=== PATIENT | male | born 1970 | race Caucasian/White ===

== ENCOUNTER 2016-04-15 19:03 | Inpatient (IN) | payer OTHER ==
[~2016-04-15] VITALS: Ht 185.4 cm; Wt 128.9 kg
[2016-04-15 19:15] VITALS: BP 151/91; PULSE 101; RESP 24; O2SAT 94
[2016-04-15] MEDS ORDERED: Heparin 5,000 Unit/mL Inj IVPUSH ONE (19:35)
[2016-04-15] MEDS ORDERED: Heparin 25K Unit/500mL 0.45 NS 25,000 UNIT in IV Premix 1 EACH IV ONE (19:35)
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
[2016-04-15 19:50] LABS: BASOPHILS % (AUTO) 0.6 % (0-3); EOSINOPHILS % (AUTO) 6.6 % (0-5); MONOCYTES % (AUTO) 8.3 % (4-12); Mean Corpuscular Hemoglobin 28.4 pg (27.0-35.0); Mean Corpuscular Volume 81.9 fL (81-100); NEUTROPHILS % (AUTO) 53.6 % (40-74); Platelet Count 206 bil/L (150-400)
[2016-04-15 20:11] LABS: TROPONIN T < 0.010 ug/L (0.0-0.011)
[2016-04-15 21:04] VITALS: BP 154/81; PULSE 96; RESP 18; O2SAT 97
--- NOTE | 2016-04-15 21:04 | DRSVH ---
PROCEDURE: CT ANGIO CHEST PULMONARY EMBOLISM ([id number]) INDICATIONS: SOB TECHNIQUE: After the administration of intravenous contrast, 2 mm thick sections acquired from the pulmonary api marimar to the posterior costophrenic angles. 2 axial scans were completed secondary to suboptimal contr ast bolus timing on the first scan. 3-dimensional maximum intensity projection (MIP) coronal and sagi ttal reformats were then acquired through the thorax. For radiation dose reduction, the following wa s used: automated exposure control, adjustment of mA and/or kV according to patient size. COMPARISON: None. FINDINGS: Image quality: Excellent. Pulmonary arteries: Tubular filling defects are seen within the distal right main pulmonary artery, e xtending into the right upper, right middle, and right lower lobe lobar, segmental, and subsegmental arterial branches. Left sided pulmonary vascular suboptimally visualized, and small pulmonary emboli may be present. Lungs and pleura: Lungs are clear. No pleural effusions or pneumothorax. Central and peripheral ai rways are patent. Mediastinum: Heart size is normal, without pericardial effusion. No mediastinal or hilar adenopathy . Thoracic aorta is normal in caliber and enhancement. Esophagus is normal in caliber, without hiat al hernia. Bones and chest wall: No suspicious bony lesions. Ribs and thoracic spine appear intact throughout. Thyroid gland is grossly unremarkable. No axillary or supraclavicular adenopathy. Abdomen: Visualized upper abdominal solid organs appear normal in the early arterial phase of enhanc ement. IMPRESSION: 1. Right-sided pulmonary emboli as described above. Findings discussed with Dr. Day on 127.17 at 2101 hrs. Dictated by: Allegra Philip M.D. on 04/15/2016 at 20:59 Approved by: Allegra Philip M.D. on 04/15/2016 at 21:02
[2016-04-15] MEDS ORDERED: Alum-Mag Hydrox-Simeth 30 mL Suspension PO PRN (21:15)
[2016-04-15] MEDS ORDERED: Polyethylene Glycol (PEG) 17 Gm Powder PO PRN (21:15)
[2016-04-15] MEDS ORDERED: Ondansetron 2 mg/mL 2 mL Inj IVPUSH PRN (21:15)
[2016-04-15] MEDS ORDERED: Heparin 5,000 Unit/mL Inj IVPUSH PRN (21:20)
[2016-04-15] MEDS ORDERED: Heparin 25K Unit/500mL 0.45 NS 25,000 UNIT in IV Premix 1 EACH IV SCH (21:20)
[2016-04-15 22:00] VITALS: BP 146/95; PULSE 106; RESP 18; O2SAT 95
--- NOTE | 2016-04-15 22:00 | NUR ---
Admission to [facility] Room 2021 Pt arrived at 2200 from the ED with VSS and on RA. Pt did c/o feeling SOB when up with activity but pt is still able to ambulate independently with a stead gait. Pt is AOx3 and is accompanied by his SO. Pt's left lower leg is edematous and pt does have some pain in the leg but did not feel a need to rate the pain at the time so there is no pain score logged at this time. Pt has low-dose algorithm insulin ordered since pt is pre-diabetic. Pt arrived with heparin running at 18unit/kg/hr.
[2016-04-15 22:14] VITALS: PULSE 106
--- NOTE | 2016-04-15 22:57 | PCM.HPMED ---
Subjective Date of Service Apr 15, 2016 Primary Provider: Admitting Physician: Madyson Correa DO Primary Care Physician: Warren Patel MD Attending Physician: Madyson Correa DO Admit Status: From the Emergency Department Chief Complaint: leg pain, DVT as per outpatient urgent care US History of Present Illness: 45yoM with past history of obesity, pre-HTN, pre-diabetes admitted after outpatient positive lower extremity ultrasound for DVT and subsequent CTA findings of pulmonary embolism. Patient states that 4-5 days ago patient started having an achy pain in his left leg that felt like "a pulled muscle". 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 After the time off he noticed that the pain in his leg did not improve and while at work decided to look up "pain in leg" on . He found that he could have DVT / PE and immediately sought out further attention at urgent care. An ultrasound of the left extremity was completed and found positive for DVT at which time patient was referred to [facility] ED where a CTA was found to be positive for pulmonary embolism. Patient has no history of DVT or PE and no family history of clotting or bleeding disorders. No history of recent travel. Possible trauma to left leg. Patient denies chest pain, chest tightness, light headedness or dizziness but endorses dyspnea on exertion and persistent left leg pain. Review of Systems: Complete review of system obtained. 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 at bedside Eyes: PERRLA, Scleral Anicteric Mouth: Mouth Normal, Mucous Membranes Moist/[place]. Neck: Supple, no Thyromegaly, trachea central. Chest & Lungs: Clear to auscultation & percussion, No adventitious breath sounds, no crackles, no wheeze Cardiovascular: Normal S1, Normal S2, No Murmurs/Rubs/Gallops, Tach/ reg Rhythm , (No JVD, 2+ pitting edema left, no edema right) Pulses: Radial (present and equal), Dorsalis Pedi (present and equal) Abdomen: Soft, Non-tender, Non-distended, Normoactive bowel tones. Musculoskeletal: Unremarkable. Normal range of motion, no swollen or erythematous joints Extremities: edema as per CV exam, no cyanosis, no clubbing. Skin: No rashes. Warm and dry, no erythematous areas Neurological: Grossly neurologically intact, has generalized weakness, Normal Speech, Sensation Intact Lymphatic: Lymph nodes Cervical and Axillary not palpable. Lab and Diagnostics Result Diagram: 04/15/16193904/15/161939 X-Rays, CTs and MRIs Patient Name: CHRISTOPHER ABDI MR#: [id number] [place] [facility] [place] Phys: Liborio Dya MD Date of Service: 04/15/161934 PROCEDURE: CT ANGIO CHEST PULMONARY EMBOLISM ([id number]) INDICATIONS: SOB TECHNIQUE: After the administration of intravenous contrast, 2 mm thick sections acquired from the pulmonary apices to the posterior costophrenic angles. 2 axial scans were completed secondary to suboptimal contrast bolus timing on the first scan. 3-dimensional maximum intensity projection (MIP) coronal and sagittal reformats were then acquired through the thorax. For radiation dose reduction, the following was used: automated exposure control, adjustment of mA and/or kV according to patient size. COMPARISON: None. FINDINGS: Image quality: Excellent. Pulmonary arteries: Tubular filling defects are seen within the distal right main pulmonary artery, extending into the right upper, right middle, and right lower lobe lobar, segmental, and subsegmental arterial branches. Left sided pulmonary vascular suboptimally visualized, and small pulmonary emboli may be present. Lungs and pleura: Lungs are clear. No pleural effusions or pneumothorax. Central and peripheral airways are patent. Mediastinum: Heart size is normal, without pericardial effusion. No mediastinal or hilar adenopathy. Thoracic aorta is normal in caliber and enhancement. Esophagus is normal in caliber, without hiatal hernia. Bones and chest wall: No suspicious bony lesions. Ribs and thoracic spine appear intact throughout. Thyroid gland is grossly unremarkable. No axillary or supraclavicular adenopathy. Abdomen: Visualized upper abdominal solid organs appear normal in the early arterial phase of enhancement. IMPRESSION: 1. Right-sided pulmonary emboli as described above. Findings discussed with Dr. Day on 127.17 at 2101 hrs. Assessment & Plan 45yoM with past history of obesity, pre-HTN, pre-diabetes admitted after outpatient positive lower extremity ultrasound for DVT and subsequent CTA findings of pulmonary embolism. DVT / PE, acute, POA -possible unprovoked, pain prior to 2 days with minimal activity -LE US pos for left DVT -CTA with PE -continue heparin gtt -ECHO in am, consider cardiology consult following ECHO result pre-HTN, chronic -continue to monitor BP pre-diabetes, chronic -SSI, low correctional obesity, chronic -BMI 38.4, severe obesity -will likely require outpatient counseling on diet. Counseling regarding exercise based on tx of PE. psoriasis, chronic -continue to monitor Pain Evaluation: Adequate Pain Control GI Prophylaxis: Not indicated VTE Prophylaxis: Other (heparin gtt for tx of PE) Resuscitation Status: CPR: Attempt Resuscitation Madyson Correa DO Apr 15, 2016 22:57
--- NOTE | 2016-04-15 23:07 | NUR ---
Admit note admit done through pt interview, pt on no Home meds.
[2016-04-15] MEDS ORDERED: Glucose 40% Oral Gel 15 Gm Tube PO PRN (23:30)
[2016-04-16] VITALS (9 sets, daily range): BP systolic 137–152; BP diastolic 80–99; PULSE 73–106; RESP 16–18; O2SAT 93–97
[2016-04-16 04:01] LABS: BASOPHILS % (AUTO) 0.8 % (0-3); EOSINOPHILS % (AUTO) 6.9 % (0-5); MONOCYTES % (AUTO) 9.2 % (4-12); Mean Corpuscular Hemoglobin 28.5 pg (27.0-35.0); Mean Corpuscular Volume 82.8 fL (81-100); NEUTROPHILS % (AUTO) 52.2 % (40-74); Platelet Count 171 bil/L (150-400)
--- NOTE | 2016-04-16 06:37 | NUR ---
Heparin Drip Pt's current heparin drip rate is 14unit/kg/hr. Next PTT Heparin draw should be approximately 0915. Pt's last PTT heparin draw was 90.6. Pt is aware that if he has a bowel movement that he needs to let us know so that we can GUAIAC his stool. There is a hat in the bathroom toilet for stool that needs to be sampled
[2016-04-16] MEDS: Insulin LISPRO 300 Unit/3 mL Inj SUBQ SCH ×4 (08:00→21:33)
[2016-04-16] MEDS ORDERED: Influenza (Adult) Vaccine 0.5 mL Syringe IM ONE (08:30)
--- NOTE | 2016-04-16 11:06 | NUR ---
Social Work: Screen D: Per EMR review, pt is a 45 year old male admitted for PE. Pt is [facility] [employer]. PCP Is Warren Patel MD. NOK is Irena Regino, ([phone]). No readmit score entered at this time. 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 Family has no concerns about d/c home when medically stable. No needs identified at this time. requested [employer] run pt's insurance for Eliquis. [employer] faxed prescription to pt's preferred pharmacy, [facility]. They are attempting to run the pt's insurance however the information provided on pt's facesheet is not showing any drug coverage for this patient. They are requesting a copy of pt's insurance card to verify correct information. [employer] attempted to obtain card from pt who states his has the card at this time. not at bedside. [employer] called the who states she will bring the card back to the hospital so that information can be verified. updated. A: Pt who is I at baseline. P: [employer] to obtain copy of insurance card to send to pharmacy for insurance verification for Eliquis coverage once returns to bedside. SHANTELL Murray
--- NOTE | 2016-04-16 11:25 | DRSVH ---
PROCEDURE: US VENOUS LEG DUPLEX BILATERAL INDICATIONS: LEG PAIN, pe TECHNIQUE: Real-time imaging, as well as color and pulse Doppler interrogation, were performed of the deep veins of both legs from the inguinal ligament to the popliteal fossa. COMPARISON: [facility], , US VENOUS LEG DPLX UNI LT, 04/15/2016, 18:36. FINDINGS: Extensive left lower extremity deep venous thrombosis is seen, with occlusive thrombus seen from the proximal left femoral vein through the left popliteal vein. The right lower extremity is free of deep venous thrombosis. The calf veins are not evaluated on the current examination. IMPRESSION: Extensive left lower extremity deep venous thrombosis again observed. Dictated by: Austyn Juarez M.D. on 04/16/2016 at 10:14 Approved by: Austyn Juarez M.D. on 04/16/2016 at 10:23
--- NOTE | 2016-04-16 16:13 | DRSVH ---
[facility] [address] [place] [address] Echocardiogram Report Name: CHRISTOPHER ABDI EStudy Date: 04/16/2016 Height: 73 in Hospital Exam Location: [facility] Weight: 287 lb Gender: Male BSA: 2.5 m2 : 1970 Age: 45 yrs BP: 137/84 mmHg Reason For Study: Pulmonary- Embolism Ordering Physician: Performed By: Jess Winters Referring Physician: Néstor Kearns Interpretation Summary The study quality was technically difficult. The left ventricle is normal in size. The ejection fraction is estimated to be 55-60%. The right ventricle is normal in size and function. All the valves were not well visualized. However no significant valvular pathology seen. Procedure: A two-dimensional transthoracic echocardiogram with color flow and Doppler was performed. The study quality was technically difficult. A contrast injection of Definity was performed to improve assessment of LV function. The patient did well with the contrast. There is no prior echocardiogram noted for this patient. The patient was in normal sinus rhythm during the exam. The patient had occasional PVCs during the exam. Left Ventricle: The left ventricle is normal in size. Left ventricular wall thickness is mildly increased. Proximal septal thickening is noted. There is no echo evidence for significant left ventricular outflow tract obstruction. There is no thrombus. The ejection fraction is estimated to be 55-60%. There is a mild dyssynchronous contraction pattern due to the paced rhythm. Spectral Doppler of the mitral valve is reversed, with an E/A wave ratio < 1.0. Right Ventricle: The right ventricle is normal in size and function. Atria: Both atria are normal in size. The interatrial septum is intact with no evidence for an atrial septal defect. There is no Doppler evidence for an interatrial shunt. Mitral Valve: The mitral valve is grossly normal. There is mild mitral annular calcification. There is no mitral regurgitation noted. Aortic Valve: The aortic valve is not well visualized. Cannot confirm a tri -cuspid valve based on today's images. There is discrete nodular thickening of the non- coronary cusp. The aortic valve is mildly calcified. There is no aortic valve stenosis. No aortic regurgitation is present. Tricuspid Valve: The tricuspid valve is not well visualized, but is grossly normal. Pulmonary artery pressures cannot be estimated because of the lack of a measurable TR jet velocity. Pulmonic Valve: The pulmonic valve is not well visualized. Great Vessels: The aortic root is not well visualized. The ascending aorta could not be visualized. The pulmonary artery is normal size. The inferior vena cava was not well visualized. The inferior vena cava appeared normal. Pericardium/ Pleura There is no pericardial effusion. MMode/2D Measurements & Calculations LVIDd: 4.1 cm RA long axis LVOT diam LVIDs: 2.8 cm LA A2 area: 19.8 cm FS: 31.1 % LA A4 area: 22.2 cm RA area AoV Opening IVSd: 1.3 cm LA length (vol): 5.3 cm : 2.1 cm LVPWd: 1.1 cm LA vol: 70.4 ml : 17.1 cm LA vol index RA vol: 45.2 ml RA : 28.1 ml/m2 : 18.0 mm2 LV billingsley. diameter/BSA LV sys. diameter/BSA RVD1 (basal) TAPSE: 2.3 cm (cm/m^2): 1.6 (cm/m^2): 1.1 Doppler Measurements & Calculations Ao V2 max MV E max austin MV E/A: 0.68 PA V2 max : 118.8 cm/sec : 48.1 cm/sec Med Peak E' Austin : 59.1 cm/sec Ao max PG MV A max austin PA mean PG : 5.6 mmHg : 71.1 cm/sec E/E' med: 6.1 : 0.85 mmHg Ao mean PG MV P1/2t: 56.7 msec Pulm A Revs Dur PA Accel Time : 0.11 sec LVOT Max Austin MV A dur: 0.12 sec : 116.6 cm/sec SHABNAM(I,D): 3.8 cm sev ratio MV dec time MV P1/2t max austin Ao V2 mean LV V1 max PG : 0.19 sec : 81.4 cm/sec Ao V2 VTI: 21.7 cm LV V1 VTI MVA(P1/2t): 3.9 cm2 : 20.7 cm SHABNAM(V,D): 3.9 cm2 PA V2 mean SHABNAM indexed to BSA Destin Yoder Dur - MV A : 44.3 cm/sec (cm^2/m^2): 1.5 Dur: -0.02 msec Reading Physician:MARLENE
--- NOTE | 2016-04-16 17:12 | NUR ---
Heparin to Warfarin Heparin was DC at 1700. Warfarin to be dosed by pharmacy and will give as soon as it comes up, warfarin education given to pt and questions answered.
--- NOTE | 2016-04-16 17:18 | PCM.PNMED ---
Subjective Date of Service Apr 16, 2016 Subjective 45yoM with past history of obesity, pre-HTN, pre-diabetes admitted after outpatient positive lower extremity ultrasound for DVT and subsequent CTA findings of pulmonary embolism. Admitted for treatment of right sided PE and left lower extremity DVT. Hospital Day 1. Overnight: no events reported Today: Patient stated he is having shortness of breath when he stands up and moves around, and complains of left lower leg pain, swelling and redness. Patient denies chest pain, chest tightness, light headedness or dizziness but endorses dyspnea on exertion and persistent left leg pain. ROS negative except as mentioned above. Exam Vital Signs Vital Sign - Last Date Time Temp Pulse Resp B/P Pulse Ox O2 Delivery O2 Flow Rate FiO2 04/16/16 03:21 36.6 86 16 137/84 93 Room Air Intake and Output 04/15/16 04/15/16 04/16/16 Cumulative From/Thru 15:00 23:00 07:00 04/15/16 19:15 - 04/16/16 06:04 Intake Total 675 ml 675 ml Output Total 325 ml 325 ml Balance 350 ml 350 ml Intake Oral 675 ml 675 ml Output Urine Total 325 ml 325 ml # Voids 2 2 Exam General: Alert, Oriented X3, Cooperative, No acute Distress. Eyes: PERRLA, scleral anicteric Mouth: Mouth normal, mucous membranes moist/pink. Neck: Supple, no thyromegaly, trachea central. Chest & Lungs: Conversationally dysgenic, clear to auscultation bilaterally, no ronchi no crackles, no wheeze Cardiovascular: Normal S1, Normal S2, No Murmurs/Rubs/Gallops, Regular rate and Rhythm Pulses: Radial (present and equal), Dorsalis Pedis (present and equal) Abdomen: Prominent Central and visceral adiposity on physical exam. Soft, Non- tender, non-distended, normoactive bowel tones. Musculoskeletal: Unremarkable. normal range of motion, no swollen or erythematous joints Extremities: Left leg erythema present, swelling no chords felt. No cyanosis, no clubbing bilaterally. Skin: Right leg psoriasis plaques noted at knee. Warm and dry, Neurological: Grossly neurologically intact, has generalized weakness, normal speech, sensation intact Lymphatic: Lymph nodes Cervical and Axillary not palpable. IVs and Medications Medications Heparin per protocol Lab and Diagnostics Result Diagram: 04/16/16 0308 04/16/16 0308 X-Rays, CTs and MRIs CT ANGIO CHEST PULMONARY EMBOLISM ([id number]) IMPRESSION: 1. Right-sided pulmonary emboli as described above. Findings discussed with Dr. Day on 127. at 2101 hrs. Dictated by: Allegra Philip M.D. on 04/15/2016 at 20:59 Approved by: Allegra Philip M.D. on 04/15/2016 at 21:02 US VENOUS LEG DUPLEX BILATERAL IMPRESSION: Extensive left lower extremity deep venous thrombosis again observed. Dictated by: Austyn Juarez M.D. on 04/16/2016 at 10:14 Approved by: Austyn Juarez M.D. on 04/16/2016 at 10:23 Cardiac Echo Impressions Echocardiogram Report Interpretation Summary: The study quality was technically difficult. The left ventricle is normal in size. The ejection fraction is estimated to be 55-60%. The right ventricle is normal in size and function. All the valves were not well visualized. However no significant valvular pathology seen. Reading Physician:PM Assessment & Plan 45yoM with past history of obesity, pre-HTN, pre-diabetes admitted after outpatient positive lower extremity ultrasound for DVT and subsequent CTA findings of pulmonary embolism. Admitted for treatment of right sided PE and left lower extremity DVT. Hospital Day 1. 1. Pulmonary Embolism, acute, present on admission -Patient noted swelling of his left leg that increased over the past two week and increased in pain, worsening shortness of breath prompting visit to ED - Patient's history is highly suspicious for an unprovoked embolism, suspicion for hypercoagulable state occult malignancy vs coagulopathy -Doppler US showed presence of large left DVT -CTA completed in ED showed evidence of right sided PE -Started heparin in ED continued on floor, stopped evening 04/16/16 -Start Coumadin for oral anticoagulation, NOAC preferable, however, due to recent change in patient's insurance coverage with NOAC is unlikely, SW to follow up -ECHO -COntinue to monitor 2. Large DVT left lower extremity, acute, present on admission -Patient noted swelling of his left leg that increased over the past two week and increased in pain, prompting visit to ED -Doppler US showed presence of large left DVT 3. Elevated blood pressure, chronicity unknown, present on admission -continue to monitor BP 4.Hyperglycemia Non DKA, acute, present on admission - low correctional scale ordered - Continue to monitor 5. Obesity, chronic, present on admission -BMI 38.4, severe obesity -will likely require outpatient counseling on diet. . 6. psoriasis, chronic, present on admission -Patient does not take medications at home for this -continue to monitor DISPOSITION: likely discharge to home with close outpatient follow up with PCP and HemeOnc once Coumadin reaches therapeutic level GI Prophylaxis: Not indicated VTE Prophylaxis: Other (heparin gtt for tx of PE) Resuscitation Status: CPR: Attempt Resuscitation Attending Statement The patient was seen and examined together with Dr. Licea on 04/16/2016 and I agree with the history, exam and plan as outlined in the note above. . JUAN PABLO LICEA DO Apr 16, 2016 07:09 Warren Villa MD Apr 17, 2016 08:09
[2016-04-16 18:48] LABS: INR 0.95 ratio
--- NOTE | 2016-04-16 19:03 | PCM.CONPHA ---
Subjective Requesting Provider: JUAN PABLO LICEA DO leg pain, DVT as per outpatient urgent care US Reason for Pharmacy Consult: Anticoagulation Management Assessment/Plan Assessment/Plan WARFARIN MANAGEMENT Age: Gender: Ht (in): Wt (Kg) Room Name: CHRISTOPHER ABDI 45 M 75 130.5 2021 Indication: DVT/PE Home dose: INR goal: 2-3 Admit Dx: DVT/PE Pertinent Hx: Hospital Team: (day) 1 [facility] CLL Date INR 0.95 INR change Warf Dose 5MG DI review Enox/Heparin 130 Q12 antiplatelet tx N HCT/PLT review Y Bleeding? N Vitamin K? N Comment flag Warfarin initial dose=5mg. INRs ordered x 7. CBC ordered x 3 Lovenox bridge therapy 1mg/kg q 12 hrs= 130mg q 12 hrs. Pharmacy will continue to monitor and dose warfarin. Lore Dill [facility] Apr 16, 2016 19:02
[2016-04-16] MEDS: ENOXAPARIN SUBQ SCH ×2 (21:21)
[2016-04-17] VITALS (9 sets, daily range): BP systolic 138–151; BP diastolic 94–117; PULSE 72–95; RESP 16–18; O2SAT 94–97
[2016-04-17 03:19] LABS: Mean Corpuscular Hemoglobin 28.3 pg (27.0-35.0); Mean Corpuscular Volume 83.2 fL (81-100)
[2016-04-17 03:34] LABS: INR 0.94 ratio
--- NOTE | 2016-04-17 06:34 | NUR ---
Lovenox to Warfarin/BGs Pt received his first administration of Lovenox 130mg SQ and first administration of Warfarin 5mg tonight. Pt confirmed that he did receive a booklet r/t warfarin/blood thinners. Pt's HS BG was 277 and pt was given 2 Units of Lispro. Pt and I briefly discussed food and drink that cause BG to rise.
[2016-04-17] MEDS: Insulin LISPRO 300 Unit/3 mL Inj SUBQ SCH ×4 (08:00→21:31)
[2016-04-17] MEDS: ENOXAPARIN SUBQ SCH ×4 (09:19→19:56)
--- NOTE | 2016-04-17 15:35 | NUR ---
Ambulation Pt up and walking in hallway with family. No c/o of SOB compared to yesterday. Did c/o left leg pain/tenderness but only while walking not at rest. Couldn't even rate it on a scale but said he felt something. Left leg is warm, somewhat swollen, and tender to touch. Left pulses are palpable and sensation to feet present.
--- NOTE | 2016-04-17 16:44 | NUR ---
Social Work: Readiness for Discharge D: Per MD request on 04/16/16 AGILE TESTER requested to verify insurance benefit for Eliquis. Per [facility] in [place], pt's copay for 90 day supply is $560. AGILE TESTER updated MD of this. MD inquired about cost of Lovenox. AGILE TESTER does not have prescription for this and cannot verify co-pay amount without prescription. MD aware; no script written for verification. Pt has been ambulating I during admission. No other sw needs identified at this time. A: Pt who is I at baseline. P: Anticipate pt to discharge home via POV once medically stable; AGILE TESTER to continue to follow SHANTELL Murray
--- NOTE | 2016-04-17 17:00 | PCM.PNMED ---
Subjective Date of Service Apr 17, 2016 Subjective Bruce Lacy 45-year-old man with past history of obesity, pre-HTN, pre- diabetes admitted after outpatient positive lower extremity ultrasound for DVT and subsequent CTA findings of pulmonary embolism. Admitted for treatment of right sided PE and left lower extremity DVT. Hospital Day 2. Overnight: No acute events. Today: Patient stated he is having shortness of breath when he ambulates but this has improved since yesterday. His conversational dyspnea has improved as well. He still has ongoing pain in his left leg. ROS negative except as mentioned above. Exam Vital Signs Vital Sign - Last Date Time Temp Pulse Resp B/P Pulse Ox O2 Delivery O2 Flow Rate FiO2 04/17/16 13:14 36.8 80 16 141/105 97 Room Air Intake and Output 04/16/16 04/16/16 04/17/16 Cumulative From/Thru 15:00 23:00 07:00 04/15/16 19:15 - 04/17/16 06:54 Intake Total 336 ml 650 ml 1661 ml Output Total 1300 ml 975 ml 2600 ml Balance -964 ml -325 ml -939 ml Intake Oral 336 ml 650 ml 1661 ml Output Urine Total 1300 ml 975 ml 2600 ml # Voids 2 4 Exam General: Alert, Oriented X3, Cooperative, No acute Distress. Eyes: PERRLA, scleral anicteric Mouth: Mouth normal, mucous membranes moist/pink. Neck: Supple, no thyromegaly, trachea central. Chest & Lungs: Conversationally dysgenic, clear to auscultation bilaterally, no ronchi no crackles, no wheeze Cardiovascular: Normal S1, Normal S2, No Murmurs/Rubs/Gallops, Regular rate and Rhythm Pulses: Radial (present and equal), Dorsalis Pedis (present and equal) Abdomen: Prominent Central and visceral adiposity on physical exam. Soft, Non- tender, non-distended, normoactive bowel tones. Musculoskeletal: Unremarkable. normal range of motion, no swollen or erythematous joints Extremities: Left leg erythema present, swelling no chords felt. No cyanosis, no clubbing bilaterally. Skin: Right leg psoriasis plaques noted at knee. Warm and dry, Neurological: Grossly neurologically intact, has generalized weakness, normal speech, sensation intact Lymphatic: Lymph nodes Cervical and Axillary not palpable. IVs and Medications Medications Reviewed: Medications were reviewed in detail Lab and Diagnostics Result Diagram: 04/17/16 0258 04/17/16257 X-Rays, CTs and MRIs CT ANGIO CHEST PULMONARY EMBOLISM IMPRESSION: 1. Right-sided pulmonary emboli as described above. Findings discussed with Dr. Day on at 2101 hrs. Dictated by: Allegra Philip M.D. on 04/15/2016 at 20:59 Approved by: Allegra Philip M.D. on 04/15/2016 at 21:02 US VENOUS LEG DUPLEX BILATERAL IMPRESSION: Extensive left lower extremity deep venous thrombosis again observed. Dictated by: Austyn Juarez M.D. on 04/16/2016 at 10:14 Approved by: Austyn Juarez M.D. on 04/16/2016 at 10:23 Cardiac Echo Impressions Interpretation Summary: The study quality was technically difficult. The left ventricle is normal in size. The ejection fraction is estimated to be 55-60%. The right ventricle is normal in size and function. All the valves were not well visualized. However no significant valvular pathology seen. Assessment & Plan Bruce Lacy 45-year-old man with past history of obesity, pre-HTN, pre- diabetes admitted after outpatient positive lower extremity ultrasound for DVT and subsequent CTA findings of pulmonary embolism. Admitted for treatment of right sided PE and left lower extremity DVT. Hospital Day 2. 1. Pulmonary embolism, acute, present on admission - Patient noted swelling of his left leg that increased over the past two week and increased in pain, worsening shortness of breath prompting visit to ED - Patient's history is highly suspicious for an unprovoked embolism, suspicion for hypercoagulable state due to occult malignancy vs coagulopathy - Doppler US showed presence of large left DVT - CTA completed in ED showed evidence of right sided PE - Started heparin in ED continued on floor, stopped evening 04/16/16 - Start Coumadin for oral anticoagulation, NOAC preferable, however, due to recent change in patient's insurance coverage with NOAC is unlikely, SW to follow up - ECHO results as above - Continue to monitor - Clinically patient is stable but he needs to either be closer to being therapeutic on warfarin or be switched to a NOAC. 2. Large DVT left lower extremity, acute, present on admission - Patient noted swelling of his left leg that increased over the past two week and increased in pain, prompting visit to ED - Doppler US showed presence of large left DVT - Anticoagulation as above 3. Elevated blood pressure, chronicity unknown, present on admission - continue to monitor BP 4.Hyperglycemia, acute, present on admission - low correctional scale ordered - Continue to monitor 5. Obesity, chronic, present on admission - BMI 38.4, severe obesity - will likely require outpatient counseling on diet 6. Psoriasis, chronic, present on admission - Patient does not take medications at home for this - continue to monitor DISPOSITION: likely discharge to home with close outpatient follow up with PCP and Heme/Onc once Coumadin reaches therapeutic level or a NOAC can be covered. GI Prophylaxis: Not indicated VTE Prophylaxis: Other (heparin gtt for tx of PE) Resuscitation Status: CPR: Attempt Resuscitation Attending Statement The patient was seen and examined together with Dr. Reyna on 04/17/2016 and I agree with the history, exam and plan as outlined in the note above. . Yaneli Reyna DO Apr 17, 2016 17:00 Warren Villa MD Apr 22, 2016 16:06
[2016-04-18 00:07] VITALS: BP 139/90; PULSE 84; RESP 16; O2SAT 94
[2016-04-18 03:21] LABS: Mean Corpuscular Hemoglobin 28.5 pg (27.0-35.0); Mean Corpuscular Volume 82.2 fL (81-100)
[2016-04-18 03:40] LABS: INR 0.96 ratio
[2016-04-18 04:21] VITALS: BP 144/91; PULSE 81; RESP 16; O2SAT 95
--- NOTE | 2016-04-18 05:11 | NUR ---
Patient Education Lovenox injections given to patient at HS for return demonstration to ensure effective patient teaching from prior; pt self-administered successfully with several prompts. Verbalizes understanding of technique and purpose. VSS. Tele SR 80s-90s. Pt reports dyspnea at baseline and on exertion, but states "It's getting a lot better, and it's almost gone."
[2016-04-18] MEDS: ENOXAPARIN SUBQ SCH ×2 (06:01)
[2016-04-18 07:30] VITALS: BP 137/97; PULSE 84; RESP 22; O2SAT 95
[2016-04-18] MEDS: Insulin LISPRO 300 Unit/3 mL Inj SUBQ SCH (07:39)
[2016-04-18] MEDS ORDERED: LOV100 SUBQ ×2 (10:07→11:35)
--- NOTE | 2016-04-18 10:15 | NUR ---
Social Work Note: Readiness for Discharge Data& Assessment: SW received prescription for Lovanox to run for coverage. Prescription faxed to pt preferred pharmacy. SW to follow up with pharmacy regarding insurance coverage for medication and notify MD. SW to continue to follow. Plan: Anticipated discharge home via POV when medically ready. SW to follow up with pharmacy and MD regarding insurance coverage for medication, SW to continue to follow. SHANTELL Rose Addendum: 04/18/16 at 1141 by KATHERINE MURPHY ARIANA confirmed with [facility] in [place] that pt will have no co-pay for the Lovanox. notified. SHANTELL Rose
--- NOTE | 2016-04-18 10:18 | PCM.DIMED ---
Discharge Instructions Date of Service Apr 18, 2016 Dates of Hospitalization Apr 15, 2016 at 21:30 Discharge Diagnosis Discharge Diagnosis 1. Pulmonary embolism, acute, present on admission 2. Large DVT left lower extremity, acute, present on admission 3. Elevated blood pressure, chronicity unknown, present on admission 4.Hyperglycemia, acute, present on admission 5. Obesity, chronic, present on admission 6. Psoriasis, chronic, present on admission Diet Heart Healthy, Diabetic Activity Limited until seen by PCP Call your provider Fever or Chills, Shortness of breath, Bleeding, Chest pain, Vomitting, Excessive diarrhea, Weakness (unilateral) Patient Instructions Follow up with you PCP in one week A referral for Hematology and Oncology is given, please follow up for an outpatient work up for hypercoagulability as your current cause of DVT and PE in you age is not fully explained Continue home medications Continue Coumadin and follow up with INR clinic to reach a therapeutic dose of Coumadin Continue Lovenox sub Q injections Daily total of 130 mg daily, continue until your INR reaches a therapeutic level 1. Pulmonary embolism - Doppler US showed presence of large left DVT - CTA completed in ED showed evidence of right sided PE - Continue anticoagulate as detailed above - Follow up with Heme Onc at next availability 2. Large DVT left lower extremity, acute, present on admission - Doppler US showed presence of large left DVT - Anticoagulation as above 3. Elevated blood pressure, chronicity unknown, present on admission - continue to monitor BP, with close outpatient follow up 4.Hyperglycemia, acute, present on admission - Continue to monitor with you outpatient doctor - 5. Obesity, chronic, present on admission - BMI 38.4, severe obesity - will likely require outpatient counseling on diet 6. Psoriasis, chronic, present on admission - continue to monitor, follow up with your PCP Follow-up plan as above Follow-up Provider: Néstor Kearns MD Follow-up with PCP in: 1 week JUAN PABLO LICEA DO Apr 18, 2016 10:18
[2016-04-18] MEDS ORDERED: WARF5TAB PO (10:19)
[2016-04-18 11:21] VITALS: PULSE 96
[2016-04-18] MEDS ORDERED: LOV30 SUBQ (11:35)
--- NOTE | 2016-04-18 11:41 | NUR ---
Social Work Note: Discharge Data& Assessment: EMR reviewed. Per pt is medically ready for discharge today. ARIANA met with pt and pt family at bedside to confirm discharge plan and assess for any unmet needs. Bruce Lacy is a 45 year old male admitted on 04/15/2016 for PE. Per pt is medically improved and ready to discharge home via POV. Pt and pt family deny any other needs. writing final prescription for Lovanox as pt will not have a co-pay per [facility] pharmacy in [place]. No other discharge needs identified. All updated and agreeable to plan. Plan: Per pt is medically improved and ready to discharge home via POV. Pt and pt family deny any other needs.No other discharge needs identified. All updated and agreeable to plan. SHANTELL Rose
--- NOTE | 2016-04-18 12:23 | NUR ---
Discharge The pt discharged from the unit at 1215 with all his belongings and his packet of discharge information. The pt verbalized understanding of all educational materials presented, and acknowledged the scripts and follow up appointment information. The pt self ambulated off the unit to a private vehicle, where he will be transported by his to their home. The pt left the unit with vitals WNL, and left A&O x3.
--- NOTE | 2016-04-18 17:15 | PCM.DC.MED ---
Discharge Summary Date of Service Apr 18, 2016 Dates of Hospitalization Date of Hospital Admission Apr 15, 2016 at 21:30 Date of Discharge: Apr 18, 2016 Providers: Admitting Physician: Madyson Correa DO Primary Care Physician: Warren Patel MD Attending Physician: Madyson Correa DO Diagnosis at Time of Discharge Diagnosis at Time of Discharge 1. Pulmonary embolism, acute, present on admission 2. Large DVT left lower extremity, acute, present on admission 3. Elevated blood pressure, chronicity unknown, present on admission 4.Hyperglycemia, acute, present on admission 5. Obesity, chronic, present on admission 6. Psoriasis, chronic, present on admission Procedures XRay, CTs & MRIs CT ANGIO CHEST PULMONARY EMBOLISM IMPRESSION: 1. Right-sided pulmonary emboli as described above. Findings discussed with Dr. Day on 127.17 at 2101 hrs. Dictated by: Allegra Philip M.D. on 04/15/2016 at 20:59 Approved by: Allegra Philip M.D. on 04/15/2016 at 21:02 VENOUS LEG DUPLEX BILATERAL IMPRESSION: Extensive left lower extremity deep venous thrombosis again observed. Dictated by: Austyn Juarez M.D. on 04/16/2016 at 10:14 Approved by: Austyn Juarez M.D. on 04/16/2016 at 10:23 Cardiac Echo Impression Interpretation Summary: The study quality was technically difficult. The left ventricle is normal in size. The ejection fraction is estimated to be 55-60%. The right ventricle is normal in size and function. All the valves were not well visualized. However no significant valvular pathology seen. Brief History Copied from H&P "45yoM with past history of obesity, pre-HTN, pre-diabetes admitted after outpatient positive lower extremity ultrasound for DVT and subsequent CTA findings of pulmonary embolism. Patient states that 4-5 days ago patient started having an achy pain in his left leg that felt like "a pulled muscle". 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 After the time off he noticed that the pain in his leg did not improve and while at work decided to look up "pain in leg" on . He found that he could have DVT / PE and immediately sought out further attention at urgent care. An ultrasound of the left extremity was completed and found positive for DVT at which time patient was referred to [facility] ED where a CTA was found to be positive for pulmonary embolism. Patient has no history of DVT or PE and no family history of clotting or bleeding disorders. No history of recent travel. Possible trauma to left leg. Patient denies chest pain, chest tightness, light headedness or dizziness but endorses dyspnea on exertion and persistent left leg pain." Hospital Course Bruce Lacy 45-year-old man with past history of obesity, pre-HTN, pre- diabetes admitted after outpatient positive lower extremity ultrasound for DVT and subsequent CTA findings of pulmonary embolism. Admitted for treatment of right sided PE and left lower extremity DVT. 1. Pulmonary embolism, acute, present on admission, stable - Patient noted swelling of his left leg that increased over the past two week and increased in pain, worsening shortness of breath prompting visit to ED - Patient's history is highly suspicious for an unprovoked embolism, suspicion for hypercoagulable state due to occult malignancy vs coagulopathy will need out patient follow up with [facility] - Doppler US showed presence of large left DVT - CTA completed in ED showed evidence of right sided PE - Started heparin in ED continued on floor, stopped evening 04/16/16 - Started Coumadin for oral anticoagulation, with Lovenox bridge, continue and follow up with Coumadin clinic to reach therapeutic INR 2-3 -duration of AC to be determined by PCP and oncology,AC probably for life 2. Large DVT left lower extremity, acute, present on admission - Patient noted swelling of his left leg that increased over two weeks with increased in pain, prompted visit to ED - Doppler US showed presence of large left DVT - Continued Anticoagulation as above 3. Elevated blood pressure, chronicity unknown, present on admission - continue to monitor BP 4.Hyperglycemia, acute, present on admission - Follow up with PCP to monitor blood glucose 5. Obesity, chronic, present on admission - BMI 38.4, severe obesity - will likely require outpatient counseling on diet 6. Psoriasis, chronic, present on admission - Patient does not take medications at home for this - continued to monitor Exam Vital Signs (Last) Date Time Temp Pulse Resp B/P Pulse Ox O2 Delivery O2 Flow Rate FiO2 04/18/16 11:21 96 04/18/16 07:30 36.9 22 137/97 95 Room Air Exam General: Alert, Oriented X3, Cooperative, No acute Distress. Eyes: PERRLA, scleral anicteric Mouth: Mouth normal, mucous membranes moist/pink. Neck: Supple, no thyromegaly, trachea central. Chest & Lungs: Conversationally dysgenic, clear to auscultation bilaterally, no ronchi no crackles, no wheeze Cardiovascular: Normal S1, Normal S2, No Murmurs/Rubs/Gallops, Regular rate and Rhythm Pulses: Radial (present and equal), Dorsalis Pedis (present and equal) Abdomen: Prominent Central and visceral adiposity on physical exam. Soft, Non- tender, non-distended, normoactive bowel tones. Musculoskeletal: Unremarkable. normal range of motion, no swollen or erythematous joints Extremities: Left leg erythema present, swelling no chords felt. No cyanosis, no clubbing bilaterally. Skin: Right leg psoriasis plaques noted at knee. Warm and dry, Neurological: Grossly neurologically intact, has generalized weakness, normal speech, sensation intact Lymphatic: Lymph nodes Cervical and Axillary not palpable. Test 04/15/16 19:40 04/16/16 03:08 04/16/16 09:28 04/16/16 14:10 Total Bilirubin 0.9mg/dL (0.0-1.2) Aspartate Amino Transf (AST/SGOT) 28U/L (0-50) Alanine Aminotransferase (ALT/SGPT) 65U/L (0-44) Alkaline Phosphatase 108U/L (25-150) Troponin T < 0.010ug/L (0.0-0.011) Total Protein 7.6g/dL (6.4-8.4) Albumin 4.3g/dL (3.4-5.0) Hold Rush Top Tube Received (Received) Neutrophils (%) (Auto) 52.2% (40-74) Lymphocytes (%) (Auto) 30.5% (14-46) Monocytes (%) (Auto) 9.2% (4-12) Eosinophils (%) (Auto) 6.9% (0-5) Basophils (%) (Auto) 0.8% (0-3) Activated Partial Thromboplast Time 60.3sec (22.8-33.0) Anti-Nuclear Antibody Screen Negative (Negative) Test 04/18/16 03:00 White Blood Count 5.7th/mm3 (3.8-10.1) Red Blood Count 5.62mil/mm3 (4.40-5.80) Hemoglobin 16.0g/dL (13.8-17.2) Hematocrit 46.2% (41.0-50.0) Mean Corpuscular Volume 82.2fL (81-100) Mean Corpuscular Hemoglobin 28.5pg (27.0-35.0) Mean Corpuscular Hemoglobin Concent 34.6% (32.0-37.0) Red Cell Distribution Width 12.8% (12.3-15.4) Platelet Count 197bil/L (150-400) Prothrombin Time 10.3sec (8.1-12.5) Prothromb Time International Ratio 0.96ratio Sodium Level 139mEq/L (134-144) Potassium Level 4.4mEq/L (3.5-5.2) Chloride Level 100mEq/L (97-108) Carbon Dioxide Level 27mmol/L (18-29) Blood Urea Nitrogen 8mg/dL (6-24) Creatinine 0.72mg/dL (0.76-1.27) Estimat Glomerular Filtration Rate 127mL/min (>59) Glucose Level 160mg/dL (60-99) Calcium Level 9.0mg/dL (8.5-10.1) Discharge Medications Discharge Medications Enoxaparin (Lovenox) 100 Mg/Ml Syringe 130 MG SUBQ Q12 Prescribed by: SERGIO HORTON DO Enoxaparin (Lovenox) 30 Mg/0.3 Ml Syringe 30 MG SUBQ DAILY Prescribed by: JUAN PABLO TURCIOS DO Enoxaparin (Lovenox) 100 Mg/Ml Syringe 100 MG SUBQ DAILY Prescribed by: JUAN PABLO TURCIOS DO Warfarin Sodium (Coumadin) 5 Mg Tablet 5 MG PO DAILY@17 Prescribed by: JUAN PABLO TURCIOS DO Followup Plan Disposition: Home Follow-up plan Follow up with you PCP in one week A referral for Hematology and Oncology is given, please follow up for an outpatient work up for hypercoagulability as your current cause of DVT and PE in you age is not fully explained Continue home medications Continue Coumadin and follow up with INR clinic to reach a therapeutic dose of Coumadin Continue Lovenox sub Q injections Daily total of 130 mg daily, continue until your INR reaches a therapeutic level 1. Pulmonary embolism - Doppler US showed presence of large left DVT - CTA completed in ED showed evidence of right sided PE - Continue anticoagulate as detailed above - Follow up with Heme Onc at next availability 2. Large DVT left lower extremity, acute, present on admission - Doppler US showed presence of large left DVT - Anticoagulation as above 3. Elevated blood pressure, chronicity unknown, present on admission - continue to monitor BP, with close outpatient follow up 4.Hyperglycemia, acute, present on admission - Continue to monitor with you outpatient doctor - 5. Obesity, chronic, present on admission - BMI 38.4, severe obesity - will likely require outpatient counseling on diet 6. Psoriasis, chronic, present on admission - continue to monitor, follow up with your PCP Discharge Diet: Heart Healthy, Diabetic Discharge Activity: Limited until seen by PCP Patient Instructions Follow up with you PCP in one week A referral for Hematology and Oncology is given, please follow up for an outpatient work up for hypercoagulability as your current cause of DVT and PE in you age is not fully explained Continue home medications Continue Coumadin and follow up with INR clinic to reach a therapeutic dose of Coumadin Continue Lovenox sub Q injections Daily total of 130 mg daily, continue until your INR reaches a therapeutic level 1. Pulmonary embolism - Doppler US showed presence of large left DVT - CTA completed in ED showed evidence of right sided PE - Continue anticoagulate as detailed above - Follow up with Heme Onc at next availability 2. Large DVT left lower extremity, acute, present on admission - Doppler US showed presence of large left DVT - Anticoagulation as above 3. Elevated blood pressure, chronicity unknown, present on admission - continue to monitor BP, with close outpatient follow up 4.Hyperglycemia, acute, present on admission - Continue to monitor with you outpatient doctor - 5. Obesity, chronic, present on admission - BMI 38.4, severe obesity - will likely require outpatient counseling on diet 6. Psoriasis, chronic, present on admission - continue to monitor, follow up with your PCP Follow-up Provider: Néstor Kearns MD Follow-up with PCP in: 1 week Provider: Shakeel Rocha MD Follow-up in: 2 weeks (jordin) Time spent 35 minutes coordinating discharge Attending Statement patient seen and examined with Dr Turcios .I agree with the history,exam, impression and plan as outlined above copies to: Néstor Kearns MD, AARON J DO Apr 18, 2016 17:15 Royal Contreras MD Apr 18, 2016 18:34
[2016-04-19 20:07] LABS: Protein C-Functional 106 % (73-180)
[2016-04-20 04:08] LABS: Protein C Antigen 79 % (60-150)
== END 2016-04-18 12:23 | disposition home or self-care (01) | DRG 176 ==
LOC: SED 19:03 → PCC 21:30
PROVIDERS: ADMIT Internal Medicine; ATTEND Internal Medicine
DX: I26.99 Other pulmonary embolism without acute cor pulmonale (principal); I82.412 Acute embolism and thrombosis of left femoral vein; E66.9 Obesity, unspecified; L40.9 Psoriasis, unspecified; R73.9 Hyperglycemia, unspecified; R03.0 Elevated blood-pressure reading, without diagnosis of hypertension; Z68.38 Body mass index [BMI] 38.0-38.9, adult